=== PATIENT | male | born 1960 | race Caucasian/White ===

== ENCOUNTER → 2017-12-24 | Outpatient (CLI) | payer OTHER | LOC: CARD 09:01 | PROVIDERS: ATTEND Internal Medicine Cardiovascular Disease | DX: R07.89 Other chest pain (principal); I07.1 Rheumatic tricuspid insufficiency; F32.9 Major depressive disorder, single episode, unspecified; G44.009 Cluster headache syndrome, unspecified, not intractable; G47.00 Insomnia, unspecified; R41.3 Other amnesia | CPT/HCPCS: 93017; 93306 ==